=== PATIENT | female | born 1980 | race American Indian/Alaskan Native ===

== ENCOUNTER 2016-11-29 22:08 | Emergency (ER) | payer OTHER ==
[2016-11-29] MEDS ORDERED: TYLENOL PO ONE (22:29)
[2016-11-29 23:10] LABS: Basophils % (Auto) 0.3 % (0.0-1.8); Hematocrit 41.9 % (30.3-42.9); Hemoglobin 13.7 gm/dl (10.1-14.3); Mean Corpuscular HGB Conc 33 % (30-34); Mean Corpuscular Hemoglobin 26 pg (28-32); Mean Corpuscular Volume 81 fl (79-97); Platelet Count 200 K/mm3 (140-440); Red Cell Distribution Width 13.3 % (13.2-15.2)
[2016-11-29 23:21] LABS: Anion Gap 17 mmol/L; BUN/Creatinine Ratio 6.25; Blood Urea Nitrogen 5 mg/dL (7-17); Carbon Dioxide 27 mmol/L (22-30); Chloride 94.1 mmol/L (98-107); Glucose 103 mg/dL (65-100); Potassium 3.1 mmol/L (3.6-5.0); Sodium 135 mmol/L (137-145)
[2016-11-30 06:10] LABS: Bacteria,Urine 1+ /HPF (Negative); Bilirubin,Urine NEG (Negative); Blood,Urine MOD (Negative); Ketones,Urine NEG (Negative); Leukocyte Esterase,Urine MOD (Negative); Mucus,Urine 2+ /HPF; Nitrite,Urine NEG (Negative)
--- NOTE | 2016-11-30 07:41 | XRay Report ---
CHEST ONE VIEW INDICATION: Chest pain. COMPARISON: None similar. FINDINGS: Portable, single, frontal chest radiograph demonstrates normal cardiomediastinal silhouette. Clear lungs. Unremarkable bones. CONCLUSION: No acute disease in the chest. Thank you for the opportunity to participate in this patient's care.
[2016-11-30] MEDS ORDERED: BICILLIN L-A IM ONE (09:09)
[2016-11-30] MEDS ORDERED: TORADOL IM ONE (09:11)
[2016-11-30] MEDS ORDERED: LIDOCAINE VISCOUS 2% PO ONE (09:11)
[2016-11-30] MEDS ORDERED: MUCINEX ER PO ONE (09:12)
--- NOTE | 2016-11-30 09:17 | Emergency Department Report ---
HPI - General Chief Complaint: Fever Time Seen by Provider: 11/30/16 07:55 - HPI HPI: The patient is 36-year-old female who presents for evaluation of sore throat. The patient reports constant and severe sore throat since yesterday, exacerbated with swallowing liquids or food, and associated with generalized myalgias, bilateral chest wall achiness, moderate in severity, and waxing and waning fever. The patient denies dyspnea, cough, neck stiffness, dysphagia, stridor, drooling, difficulty tolerating secretions, dysphonia, hoarseness of voice, abdominal pain. ED Past Medical Hx - Past Medical History Previous Medical History?: Yes Hx Deep Vein Thrombosis: Yes (2001 DURING ) Hx Sickle Cell Disease: Yes (TRAIT) - Surgical History Past Surgical History?: Yes Additional Surgical History: c sect, ectopic preg. cyst removal, hernia - Social History Smoking Status: Current Every Day Smoker Substance Use Type: None - Medications Home Medications: Home Medications Medication Instructions Recorded Confirmed Last Taken Type HYDROcodone/APAP 7.5-325 [[place]] 15 ml PO Q4HR PRN #120 ml 11/30/16 Unknown Rx Ibuprofen [Motrin] 800 mg PO Q8HR PRN #14 tablet 11/30/16 Unknown Rx guaiFENesin [Mucinex] 600 mg PO Q6HR #20 tab.er.12h 11/30/16 Unknown Rx ED Review of Systems ROS: Stated complaint: FLU LIKE SYMPTOMS, BONE ACHE Other details as noted in HPI Constitutional: denies: fever ENT: reports sore throat Respiratory: reports cough, shortness of breath Cardiovascular: denies: chest pain Endocrine: denies unexplained weight loss or gain Gastrointestinal: denies: abdominal pain, nausea Genitourinary: denies: dysuria Musculoskeletal: denies: leg swelling Skin: denies: rash Neurological: denies: headache Hematological/Lymphatic: denies: easy bleeding or easy bruising Psych: denies sadness or hopelessness Physical Exam - Physical Exam Vital Signs: Vital Signs 11/29/16 11/29/16 11/30/16 22:25 22:34 03:33 Temperature 101.2 F H 99.5 F Pulse Rate 124 H 99 H Respiratory 18 18 20 Rate Blood Pressure 138/94 Blood Pressure [Left] Blood Pressure 138/93 [Right] O2 Sat by Pulse 100 99 Oximetry 11/30/16 11/30/16 06:59 07:15 Temperature 99.6 F Pulse Rate 92 H Respiratory 18 16 Rate Blood Pressure Blood Pressure 142/94 [Left] Blood Pressure [Right] O2 Sat by Pulse 100 Oximetry Physical Exam: General: well-nourished, well-developed, no acute distress Head: Normocephalic, atraumatic Eyes: normal sclera ENT: Mucous membranes are pink and moist, bilateral tonsillar erythema and swelling present, mild tonsillar exudate, no stridor, no pooling of secretions Neck: trachea midline, neck supple, No neck stiffness, no cervical adenopathy Respiratory: Breath sounds equal bilaterally, no wheezing, rales, or rhonchi Cardio: S1 and S2 present, no murmurs, rubs, gallops, capillary refill is brisk Abdomen: Normoactive bowel sounds, soft abdomen, no rigidity, no guarding or rebound tenderness Musc: No pitting edema Skin: No rash Neuro: no facial drooping, normal speech Psych: Normal affect ED Course Vital Signs 11/29/16 11/29/16 11/30/16 22:25 22:34 03:33 Temperature 101.2 F H 99.5 F Pulse Rate 124 H 99 H Respiratory 18 18 20 Rate Blood Pressure 138/94 Blood Pressure [Left] Blood Pressure 138/93 [Right] O2 Sat by Pulse 100 99 Oximetry 11/30/16 11/30/16 06:59 07:15 Temperature 99.6 F Pulse Rate 92 H Respiratory 18 16 Rate Blood Pressure Blood Pressure 142/94 [Left] Blood Pressure [Right] O2 Sat by Pulse 100 Oximetry ED Medical Decision Making - Lab Data Result diagrams: 11/29/16 22:40 11/29/16 22:40 - Medical Decision Making The patient was seen and examined by myself. The patient is placed on a monitor and storage bin tender and continuous pulse ox. On initial evaluation, the patient was found to be in no distress. Evaluation orders were placed. The patient was given a tablet of Tylenol for her elevated temperature. The patient was given viscous lidocaine and an IM dose of Toradol for her pain. The strep screen is positive for streptococcal pharyngitis. The patient is given IM penicillin G injection, for treatment of strep pharyngitis. The patient was reevaluated and reported that their symptoms were markedly improved. The patient is stable for discharge with outpatient follow-up. The patient is given follow-up and return instructions. The patient expressed understanding and agreed with the plan. The patient is discharged in stable condition. Critical care attestation.: If time is entered above; I have spent that time in minutes in the direct care of this critically ill patient, excluding procedure time. ED Disposition Clinical Impression: Acute streptococcal pharyngitis, Myalgia, Acute chest wall pain Disposition: DISCHARGED TO HOME OR SELFCARE Is pt being admited?: No Does the pt Need Aspirin: No Condition: Stable Instructions: Strep Throat (ED), Musculoskeletal Pain (ED), Chest Pain (ED) Referrals: PRIMARY CARE, [Primary Care Provider] - 3-5 Days Time of Disposition: 09:12
[2016-11-30 10:07] VITALS: BP 134/77
== END 2016-11-30 10:07 | disposition home or self-care (01) ==
LOC: ED 22:08
DX: J02.0 Streptococcal pharyngitis (principal); M79.1 Myalgia; R07.89 Other chest pain; F17.200 Nicotine dependence, unspecified, uncomplicated; Z86.2 Personal history of diseases of the blood and blood-forming organs and certain disorders involving the immune mechanism; Z86.718 Personal history of other venous thrombosis and embolism
CPT/HCPCS: 36415; 71010; 80048; 81001; 81025; 85025; 87400; 87430; 96372; 99284; J0561; J1885

== ENCOUNTER 2018-05-22 10:59 | Emergency (ER) | payer MEDICAID ==
[2018-05-22 11:40] VITALS: BP 112/70
[2018-05-22 12:31] LABS: Hematocrit 36.6 % (30.3-42.9); Hemoglobin 12.3 gm/dl (10.1-14.3); Mean Corpuscular HGB Conc 34 % (30-34); Mean Corpuscular Hemoglobin 28 pg (28-32); Mean Corpuscular Volume 84 fl (79-97); Platelet Count 264 K/mm3 (140-440); Red Blood Count 4.38 M/mm3 (3.65-5.03); Red Cell Distribution Width 13.4 % (13.2-15.2)
[2018-05-22 12:40] LABS: INR 0.96 (0.87-1.13); Partial Thromboplastin Time 25.2 Sec. (24.2-36.6)
[2018-05-22 12:54] LABS: BUN/Creatinine Ratio 18; Blood Urea Nitrogen 9 mg/dL (7-17); Calcium 9.2 mg/dL (8.4-10.2); Hemolysis Index 1
[2018-05-22 13:45] LABS: Bilirubin,Urine NEG (Negative); Blood,Urine NEG (Negative); Color,Urine Amber (Yellow); Mucus,Urine FEW /HPF; Protein,Urine <15 mg/dL mg/dL (Negative); WBC,Urine < 1.0 /HPF (0.0-6.0)
== END 2018-05-22 14:17 | disposition left against medical advice (07) ==
LOC: ED 10:59
DX: O20.9 Hemorrhage in early pregnancy, unspecified (principal); R10.2 Pelvic and perineal pain; Z3A.17 17 weeks gestation of pregnancy; Z53.21 Procedure and treatment not carried out due to patient leaving prior to being seen by health care provider
CPT/HCPCS: 36415; 80048; 81001; 84702; 85027; 85610; 85730; 86850; 86900; 86901

== ENCOUNTER 2018-10-21 14:05 | Inpatient (IN) | payer MEDICAID ==
[2018-10-21] MEDS ORDERED: PEPCID IV ONE (15:00)
[2018-10-21] MEDS ORDERED: ANCEF/STERILE WATER 2 GM/20 ML 2 GM/20 ML SYRINGE IV NR (15:00)
[2018-10-21] MEDS ORDERED: PITOCin/NS 20 UNIT/1000ML DRIP 20 UNITS/1,000 ML BAG IV SCH ×2 (15:00→19:00)
[2018-10-21] MEDS ORDERED: BICITRA PO ONE (15:00)
[2018-10-21] MEDS ORDERED: LACTATED RINGERS 1,000 ML IV SCH (15:00)
[2018-10-21] MEDS ORDERED: REGLAN IV ONE (15:00)
--- NOTE | 2018-10-21 15:05 | Anesthesia Day of Surgery ---
Anesthesia Day of Surgery - Day of Surgery Patient Examined: Yes Patient H&P Reviewed: Yes Patient is NPO: No (Pt had a full breakfast at 11 am ) Beta Blockers: No
--- NOTE | 2018-10-21 15:08 | Anesthesia Consultation ---
Anesthesia Consult and Med Hx Date of service: 10/21/18 - Airway Anesthetic Teeth Evaluation: Chipped (Right lower incisor) ROM Head & Neck: Adequate Mental/Hyoid Distance: Adequate Mallampati Class: Class III Intubation Access Assessment: Probably Good - Pulmonary Exam CTA: Yes - Cardiac Exam Cardiac Exam: No Murmur - Pre-Operative Health Status ASA Pre-Surgery Classification: ASA2, Emergency Proposed Anesthetic Plan: Spinal - Pulmonary Hx Asthma: No - Cardiovascular System Hx Hypertension: No - Central Nervous System Hx Seizures: No Hx Psychiatric Problems: No - Endocrine Hx Renal Disease: No Hx Hypothyroidism: No Hx Hyperthyroidism: No - Hematic Hx Anemia: No Hx Sickle Cell Disease: No (pt has trait) - Other Systems Hx Alcohol Use: No - Additional Comments Anesthesia Medical History Comments: Pt has a history of DVT and takes lovenox at home, last dose of aspirin and Lovenox was Monday10/19/18 at 0800 as per patient. Risks, benefits and plans discussed at length with patient for this procedure and all questions answered.
[2018-10-21 15:12] LABS: Basophils % (Auto) 0.5 % (0.0-1.8); Eosinophils # (Auto) 0.1 K/mm3 (0.0-0.4); Eosinophils % (Auto) 1.7 % (0.0-4.3); Hematocrit 34.4 % (30.3-42.9); Hemoglobin 12.1 gm/dl (10.1-14.3); Lymphocytes % (Auto) 23.5 % (13.4-35.0); Mean Corpuscular HGB Conc 35 % (30-34); Mean Corpuscular Volume 80 fl (79-97); Monocytes # (Auto) 0.7 K/mm3 (0.0-0.8); Monocytes % (Auto) 8.6 % (0.0-7.3); Platelet Count 233 K/mm3 (140-440); Red Blood Count 4.33 M/mm3 (3.65-5.03); Red Cell Distribution Width 14.7 % (13.2-15.2)
[2018-10-21] MEDS ORDERED: PHENERGAN PO PRN (15:13)
[2018-10-21] MEDS ORDERED: ZOFRAN IV PRN ×2 (15:13→18:41)
[2018-10-21] MEDS ORDERED: PHENERGAN PR PRN (15:13)
[2018-10-21] MEDS ORDERED: NARCAN 0.4 MG/1 ML IV PRN ×2 (15:13→18:41)
[2018-10-21 15:15] LABS: Partial Thromboplastin Time 25.4 Sec. (24.2-36.6)
--- NOTE | 2018-10-21 15:47 | History and Physical Report ---
History of Present Illness Date of examination: 10/21/18 Date of admission: 10/21/18 14:05 Chief complaint: rupture of membranes History of present illness: Pt is a 38 year old -[place]oven[place] female DENNISE 10/27/18 at 39w1d who presents with rupture of membranes at 1300 PM today. She reports irregular contractions but denies vaginal bleeding. She has had care at [facility] since 10 wks with comanagement with [facility] secondary to history of DVT on prophylactic Lovenox (last dose 10/19/18), advanced maternal age, previous , hyperthyroidism, genital herpes, undesired fertility. She is GBS negative. Past History Past Medical History: deep vein thrombosis (2001 during a ) Past Surgical History: QUILL FIXER/uterine surgery (ex lap), section, other (hernia repair ) QUILL FIXER History: herpes Family/Genetic History: none Social history: no significant social history - Obstetrical History Expected Date of Delivery: 10/27/18 Actual Gestation: 39 Week(s) 1 Day(s) : 8 Para: 2 Hx # Term Pregnancies: 2 Number of Pregnancies: 0 Spontaneous Abortions: 2 (1 SAB, 1 ectopic ) Induced : 3 Number of Living Children: 2 Medications and Allergies Allergies Allergy/AdvReac Type Severity Reaction Status Date / Time No Known Allergies Allergy Verified 10/21/18 14:24 Home Medications Medication Instructions Recorded Confirmed Last Taken Type HYDROcodone/APAP 7.5-325 [[place]] 15 ml PO Q4HR PRN #120 ml 11/30/16 Unknown Rx Ibuprofen [Motrin] 800 mg PO Q8HR PRN #14 tablet 11/30/16 Unknown Rx guaiFENesin [Mucinex] 600 mg PO Q6HR #20 tab.er.12h 11/30/16 Unknown Rx Active Meds: Active Medications Cefazolin Sodium (Ancef/Sterile Water 2 Gm/20 Ml) 2 gm in 20 mls @ 80 mls/hr IV PREOP NR; Protocol Stop: 10/22/18 14:59 Lactated Ringer's (Lactated Ringers) 1,000 mls @ 2,250 mls/hr IV PREOP LAYLA Stop: 10/22/18 15:27 Oxytocin/Sodium Chloride (Pitocin/Ns 20 Unit/1000ml Drip) 20 units in 1,000 mls @ 0 mls/hr IV TITR LAYLA Fentanyl/Bupivacaine/Sodium Chlor (Fentanyl-Bupiv 2 Mcg/Ml-0.125%) 200 mcg in 100 mls @ 8 mls/hr EPIDURAL TITRATE LAYLA; Protocol Naloxone HCl (Narcan 0.4 Mg/1 Ml) 0.2 mg IV Q2MIN PRN PRN Reason: Res Rate </= 8 or 02 SAT < 92% Ondansetron HCl (Zofran) 4 mg IV Q8H PRN PRN Reason: Nausea And Vomiting Promethazine HCl (Phenergan) 25 mg PO Q6H PRN PRN Reason: Nausea And Vomiting Promethazine HCl (Phenergan) 25 mg AL Q6H PRN PRN Reason: Nausea And Vomiting Sodium Chloride (Sodium Chloride Flush Syringe 10 Ml) 10 ml IV PRN NR Stop: 10/22/18 15:59 Review of Systems All systems: negative - Vital Signs Vital signs: Vital Signs Temp Resp BP 98.1 F 18 146/85 10/21/18 15:00 10/21/18 15:00 10/21/18 15:00 Temp Pulse Resp BP Pulse Ox 98.1 F 100 H 18 146/85 10/21/18 15:00 10/21/18 15:17 10/21/18 15:00 10/21/18 15:17 - Physical Exam Breasts: Positive: deferred Abdomen: Positive: soft (gravid ) Uterus: Positive: enlarged (gravid ) Extremities: Positive: normal - Obstetrical FHR: auscultation normal Uterine Contraction Monitor Mode: External Uterine Contraction Pattern: Irregular Uterine Tone Measurement Phase: Resting Uterine Contraction Intensity: Mild Results Result Diagrams: 10/21/18 14:40 Abnormal lab results 10/21/18 Range/Units 14:40 MCHC 35 H (30-34) % [place] % (Auto) 8.6 H (0.0-7.3) % All other labs normal. Assessment and Plan A: IUP at 39w2d SROM Previous x 1 Undesired Fertility H/o DVT on Lovenox (last dose Monday10/19/18) GBS negative AMA P: Proceed with repeat section with bilateral tubal ligation and other indicated procedures.
[2018-10-21] MEDS ORDERED: SODIUM CHLORIDE FLUSH SYRINGE 10 ML IV NR ×2 (16:00→19:00)
[2018-10-21] MEDS ORDERED: fentaNYL-BUPIV 2 MCG/ML-0.125% 200 MCG/100 ML BAG EPIDURAL SCH (16:00)
[2018-10-21] MEDS ORDERED: ZOFRAN ONE (16:53)
[2018-10-21] MEDS ORDERED: SUBLIMAZE ONE (16:57)
[2018-10-21] MEDS ORDERED: XYLOCAINE MPF 2% ONE (17:02)
[2018-10-21] MEDS ORDERED: NEO SYNEPHRINE/NS Syringe(OR USE) IV ONE (17:03)
[2018-10-21] MEDS ORDERED: DILAUDID ONE (17:49)
--- NOTE | 2018-10-21 18:08 | Procedure Note ---
OB Delivery Note - Delivery Date of Delivery: 10/21/18 Surgeon: SHARYN BUCHANAN Estimated blood loss: other (700 mL) - Section Preop diagnosis: repeat , other (rupture of membranes ) Postop diagnosis: same section procedure: section, repeat low transverse, bilateral tubal ligation Disposition: PACU Complications: none Narrative: Please see operative report. - A at 1 minute: 8 at 5 minutes: 9 Infant Gender: Male (3370g (7lb 7oz) @ 1655 pm)
--- NOTE | 2018-10-21 18:08 | Operative Report ---
Operative Report Operative Report: Date of procedure: October 21, 2018 Preoperative diagnosis: 1) IUP at 39w1d 2) Spontaneous Rupture of Membranes 3) Previous x 1 4) H/o DVT in prior 5) Undesired Fertility Postoperative diagnosis: Same Procedure: 1) Repeat low transverse section 2) Bilateral tubal ligation via [place] Method Surgeon: Zayra Healy M.D. Anesthesia: Regional Findings: 1) Viable male , Apgars 8 and 9, weight 3370 g, (7 lb 7 oz) in cephalic presentation, meconium stained fluid 2) Normal-appearing uterus ovaries and tubes Estimated blood loss: 700 mL IV fluids: 3000 mL Urine output: 200mL, clear at the end of the procedure Drains: [place] to gravity Specimens: None Complications: None. Counts correct x 3 Disposition: Stable to PACU Indication for procedure: Pt is a 38 year old -[place] female at 39w1d with h/o one previous and DVT in prior who presents with rupture of membranes. The decision was made to proceed with repeat section. Operation in detail: After the risks, benefits, alternatives and complications were explained to the patient she gave informed consent for the procedure. She was subsequently taken to the operating room where regional anesthesia was noted to be adequate. She was subsequently placed in the dorsal supine position with leftward tilt and prepped and draped in a normal sterile fashion. heart tones were noted to be in the 140s prior to incision. A timeout was performed. A Pfannenstiel skin incision was made with the knife and carried down to the layer of the fascia with the Bovie. The fascia was incised in the midline and the fascial incision was extended bilaterally with the Bovie. Attention was then turned to the superior aspect of the incision which was grasped with two Kochers, tented up, and dissected off the rectus muscles. Attention was then turned to the inferior aspect of the incision which was grasped with two Kochers, tented up and dissected off the rectus muscles. The rectus muscles were then in the midline and partially transected for adequate visualization. The peritoneum was then entered bluntly. The peritoneal incision was extended with good visualization of the bladder. The peritoneal incision was then stretched. An Jitendra self-retaining retractor was placed for visualization. The bladder blade was placed. The vesicouterine peritoneum was grasped with smooth pickups and incised with Metzenbaum scissors. Metzenbaum scissors were used to extend the incision bilaterally. The bladder flap was then created digitally and the bladder blade was replaced. A transverse incision was made in the lower uterine segment with a knife and extended bilaterally with the bandage scissors. The head was delivered without difficulty followed by shoulders and body. was bulb suctioned at delivery. The cord was clamped and cut and the was handed to NICU staff in attendance. Cord blood was collected. The placenta was then delivered manually. The uterus was then exteriorized and cleared of all clots and debris. The hyst erotomy was then reapproximated with 0 Vicryl in a running locked fashion. A second layer of the same suture was used in imbricating fashion. Attention was then turned to the tubal ligation. The right tube was identified and followed to to the fimbriae. The tube was then grasped with a Jonathan, doubly tied and ligated via the [place] method using 0 Chromic. Attention was then turned to the left tube which in a similar fashion was followed down to the fimbriae, grasped with a Jonathan, doubly tied and ligated via the [place] method using 0 Chromic. Hemostasis was noted. Surgicel was placed over the cut edges of the tubes bilaterally. The hysterotomy was inspected and hemostasis was noted. The uterus was then returned to the peritoneal cavity. All instruments were removed from the a bdominal cavity. The gutters were irrigated and cleared of all clots and debris. The hysterotomy was again inspected and noted to be hemostatic. Surgicel was then placed over the hysterotomy. The peritoneum was reapproximated with 2-0 Vicryl in a running fashion incorporating the rectus muscles. The fascia was reapproximated with 0 Vicryl in a running fashion. The skin was reapproximated with 4-0 Vicryl in a subcuticular fashion. The incision was then covered with steri strips and a pressure dressing. The procedure was then ended. The patient tolerated the procedure well and was taken to the PACU in stable condition. All instrument, lap, and needle counts were correct 3.
[2018-10-21] MEDS ORDERED: DILAUDID IV ONE (18:32)
[2018-10-21] MEDS ORDERED: TUCKS PAD TP PRN (18:41)
[2018-10-21] MEDS ORDERED: LANSINOH TP PRN (18:41)
[2018-10-21] MEDS ORDERED: MYLICON PO PRN (18:41)
[2018-10-21] MEDS ORDERED: D5LR 1,000 ML IV SCH (19:00)
[2018-10-21] MEDS ORDERED: SUBLIMAZE IV ONE (19:13)
[2018-10-21] MEDS: IBUPROFEN PO PRN (19:28)
[2018-10-21] MEDS: PERCOCET 5/325 PO PRN (21:55)
[2018-10-21] MEDS: LOVENOX SUB-Q SCH (23:07)
[2018-10-21] MEDS: ANCEF/NS 1 GM/50 ML 1 GM/50 ML BAG IV SCH (23:07)
[2018-10-22] MEDS: PERCOCET 5/325 PO PRN ×4 (05:49→22:08)
[2018-10-22] MEDS ORDERED: M-M-R II VACCINE SUB-Q ONE (06:00)
[2018-10-22] MEDS ORDERED: BOOSTRIX IM ONE (06:00)
[2018-10-22 06:18] LABS: Hematocrit 29.7 % (30.3-42.9); Hemoglobin 10.1 gm/dl (10.1-14.3)
[2018-10-22 06:45] LABS: Hepatitis B Surface Antigen Non-Reactive (Negative); Hepatitis C Virus Antibody Non-Reactive (NonReactive)
[2018-10-22] MEDS: IBUPROFEN PO PRN ×3 (07:17→22:10)
[2018-10-22] MEDS: ANCEF/NS 1 GM/50 ML 1 GM/50 ML BAG IV SCH (08:19)
--- NOTE | 2018-10-22 08:54 | Progress Note ---
Assessment and Plan A/P POD 1 s/p csec doing well vss continue post op care Subjective - Subjective Date of service: 10/22/18 Principal diagnosis: s/p csec Patient reports: appetite normal, voiding normally, pain well controlled, flatus, ambulating normally [place]: doing well Objective - Vital Signs Latest vital signs: Vital Signs Temp Pulse Resp BP BP Pulse Ox 10/22/18 08:36 98.7 F 83 18 122/80 97 10/22/18 07:17 20 10/22/18 05:49 24 10/22/18 04:30 98.6 F 77 16 118/79 10/22/18 00:00 98.6 F 74 18 118/73 10/21/18 21:55 22 10/21/18 19:50 98.7 F 82 18 132/83 10/21/18 19:30 98.3 F 98 H 20 123/70 10/21/18 19:15 89 22 130/71 10/21/18 19:00 87 22 130/71 10/21/18 18:30 93 H 19 128/85 98 10/21/18 18:15 14 135/86 10/21/18 18:10 79 15 132/81 100 10/21/18 18:05 86 19 116/82 99 10/21/18 18:00 91 H 16 134/85 10/21/18 17:55 98.3 F 98 H 16 122/81 10/21/18 15:17 100 H 146/85 10/21/18 15:00 98.1 F 18 146/85 Intake and Output 10/21/18 10/22/18 10/22/18 23:59 07:59 15:59 Intake Total 1500 500 240 Output Total 200 600 Balance 1300 -100 240 Intake: IV 1500 ANCEF/NS 1 GM/50 ML 1 gm 50 In 50 ml @ 100 mls/hr IV Q8H [facility] Rx#:[id number] Oral 200 Intake, Free Water 300 240 Output: Urine 200 600 Void 600 Other: Total, Intake Amount 200 Total, Output Amount 600 - Exam Breasts: Present: normal Cardiovascular: Present: Regular rate, Normal S1 Lungs: Present: Clear to auscultation, Normal air movement Abdomen: Present: normal appearance, soft, normal bowel sounds. Absent: distention, tenderness, guarding Vulva: both: normal Uterus: Present: normal, firm, fundal height below umbilicus. Absent: bogginess, tenderness Extremities: Present: normal Incision: Present: normal, dry, dressed - Labs Labs: Abnormal lab results 10/21/18 10/22/18 Range/Units 14:40 05:27 Hct 29.7 L (30.3-42.9) % MCHC 35 H (30-34) % [place] % (Auto) 8.6 H (0.0-7.3) %
[2018-10-22] MEDS: FEOSOL PO SCH (10:12)
[2018-10-22] MEDS: MILK OF MAGNESIA PO PRN (22:08)
[2018-10-22] MEDS: LOVENOX SUB-Q SCH (22:10)
[2018-10-23] MEDS: PERCOCET 5/325 PO PRN ×4 (05:57→21:47)
[2018-10-23] MEDS: IBUPROFEN PO PRN ×3 (05:57→21:46)
[2018-10-23] MEDS ORDERED: BOOSTRIX IM ONE (06:00)
--- NOTE | 2018-10-23 08:34 | Progress Note ---
Assessment and Plan - Patient Problems (1) Previous section Current Visit: Yes Status: Acute Plan to address problem: discharge home tomorrow clinically stable Subjective - Subjective Date of service: 10/23/18 Principal diagnosis: s/p csec Interval history: Patient states pain is improving. Tolerating diet. Desires discharge home tomorrow Patient reports: appetite normal, voiding normally, pain well controlled [place]: doing well Objective - Vital Signs Latest vital signs: Vital Signs Temp Pulse Resp BP BP Pulse Ox 10/23/18 07:20 98.3 F 93 H 20 115/79 95 10/22/18 23:29 98.4 F 94 H 20 125/78 97 10/22/18 15:54 98.5 F 99 H 18 126/88 98 10/22/18 12:51 98.6 F 90 18 117/78 98 10/22/18 12:50 98.6 F 90 16 117/78 97 10/22/18 08:36 98.7 F 83 18 122/80 97 Intake and Output 10/22/18 10/23/18 10/23/18 22:59 06:59 14:59 Intake Total 240 480 Output Total 750 Balance -510 480 Intake: Oral 480 Intake, Free Water 240 Output: Urine 750 Void 750 Other: Total, Intake Amount 240 Total, Output Amount 750 # Voids Void 1 - Exam Abdomen: Present: normal appearance, soft Incision: Present: normal
--- NOTE | 2018-10-23 08:36 | Discharge Summary ---
Providers - Providers Date of Admission: 10/21/18 14:05 Date of discharge: 10/24/18 Attending physician: SHARYN BUCHANAN Primary care physician: [facility] Hospital[facility] Reason for admission: active labor, section Delivery: Procedure: section, bilateral tubal ligation, repeat low transverse Incision: normal Discharge diagnosis: IUP at term delivered baby: male Hospital course: Patient admitted in labor with a prior . Patient underwent rltcs and btl. see op note. postop uncomplicated Condition at discharge: Good Disposition: DC-01 TO HOME OR SELFCARE - Discharge Diagnoses (1) Previous section Status: Acute Plan - Discharge Medications Prescriptions: Ferrous Sulfate 325 mg PO BID #60 tablet. Ibuprofen [Motrin] 600 mg PO Q8H PRN #30 tablet PRN Reason: Pain oxyCODONE /ACETAMINOPHEN [Percocet 5/325] 1 tab PO Q6HR PRN #30 tablet PRN Reason: Pain - Provider Discharge Summary Activity: no sex for 6 weeks, no heavy lifting 4 weeks, no strenuous exercise Diet: routine Instructions: routine Additional instructions: [] Smoking cessation referral if applicable(refer to patient education folder for contact #) [] Refer to [facility] Booklet Call your doctor immediately for: * Fever > 100.5 * Heavy vaginal bleeding ( >1 pad per hour) * Severe persistent headache * Shortness of breath * Reddened, hot, painful area to leg or breast * schedule followup in 2 weeks - Follow up plan
[2018-10-23] MEDS: FEOSOL PO SCH (10:48)
[2018-10-23] MEDS: LOVENOX SUB-Q SCH (21:49)
[2018-10-23] MEDS: MILK OF MAGNESIA PO PRN (22:14)
[2018-10-24] MEDS: PERCOCET 5/325 PO PRN ×3 (02:13→10:34)
[2018-10-24] MEDS: IBUPROFEN PO PRN (05:39)
[2018-10-24 09:01] VITALS: BP 107/74
[2018-10-24] MEDS: FEOSOL PO SCH (10:35)
== END 2018-10-24 11:20 | disposition home or self-care (01) | DRG 766 ==
LOC: APU 14:05 → OB 19:56
PROVIDERS: ADMIT Obstetrics & Gynecology; ATTEND Obstetrics & Gynecology
PROC: 10D00Z1 Extraction of Products of Conception, Low, Open Approach (ICD-10-PCS; principal; 2018-10-21)
PROC: 0UB70ZZ Excision of Bilateral Fallopian Tubes, Open Approach (ICD-10-PCS; 2018-10-21)
PROC: 3E0234Z Introduction of Serum, Toxoid and Vaccine into Muscle, Percutaneous Approach (ICD-10-PCS; 2018-10-22)
DX: O34.211 Maternal care for low transverse scar from previous cesarean delivery (principal); O99.284 Endocrine, nutritional and metabolic diseases complicating childbirth; E05.90 Thyrotoxicosis, unspecified without thyrotoxic crisis or storm; Z3A.39 39 weeks gestation of pregnancy; Z37.0 Single live birth; Z86.718 Personal history of other venous thrombosis and embolism; Z79.899 Other long term (current) drug therapy; Z23 Encounter for immunization
CPT/HCPCS: 36415; 80074; 84443; 85014; 85018; 85025; 85610; 85730; 86762; 86850; 86900; 86901; 88302; 90471; 90715; G0378; J0690; J1170; J1650; J2370; J2405; J2590; J2765; J3010; J7121

== ENCOUNTER 2019-12-18 16:29 | Emergency (ER) | payer OTHER ==
[2019-12-18 19:15] VITALS: BP 173/110
[2019-12-18] MEDS ORDERED: ACETAMINOPHEN 500 MG TAB PO ONE (20:04)
[2019-12-18] MEDS ORDERED: IBUPROFEN 600 MG TAB PO ONE (20:04)
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
[2019-12-18 22:43] LABS: HCG Qualitative,Urine Negative (Negative)
[2019-12-18 22:44] LABS: Bilirubin,Urine NEG (Negative); Blood,Urine NEG (Negative); Color,Urine Yellow (Yellow); Mucus,Urine FEW /HPF; Protein,Urine <15 mg/dL mg/dL (Negative)
== END 2019-12-18 22:17 | disposition home or self-care (01) ==
LOC: ED 16:29
DX: S39.012A Strain of muscle, fascia and tendon of lower back, initial encounter (principal); M62.830 Muscle spasm of back; Z79.1 Long term (current) use of non-steroidal anti-inflammatories (NSAID); Z79.899 Other long term (current) drug therapy; Z98.890 Other specified postprocedural states; V49.49XA Driver injured in collision with other motor vehicles in traffic accident, initial encounter; Y93.89 Activity, other specified; Y92.410 Unspecified street and highway as the place of occurrence of the external cause; Y99.8 Other external cause status
CPT/HCPCS: 72072; 72100; 81001; 81025

== ENCOUNTER 2020-03-12 20:06 | Emergency (ER) | payer OTHER ==
[2020-03-12 21:00] VITALS: BP 165/109
[2020-03-12] MEDS ORDERED: ACETAMINOPHEN 500 MG TAB PO ONE (22:35)
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
== END 2020-03-12 22:58 | disposition home or self-care (01) ==
LOC: ED 20:06
DX: R10.9 Unspecified abdominal pain (principal); Z86.718 Personal history of other venous thrombosis and embolism; Z98.890 Other specified postprocedural states; Z79.1 Long term (current) use of non-steroidal anti-inflammatories (NSAID); Z79.899 Other long term (current) drug therapy; V49.49XA Driver injured in collision with other motor vehicles in traffic accident, initial encounter; Y93.89 Activity, other specified; Y92.481 Parking lot as the place of occurrence of the external cause; Y99.8 Other external cause status
CPT/HCPCS: 99282

== ENCOUNTER 2020-09-10 10:55 | Emergency (ER) | payer SELFPAY ==
--- NOTE | 2020-09-10 12:32 | Event Note ---
ED Screening Note ED Screening Note: BLE pain that began two days ago went to [place] last week, 7 hours in the car no leg swelling has been taking muscle relaxers, ibuprofen no fever no n/v/d no SOB PMHx DVT 2001, in the left leg This initial assessment/diagnostic orders/clinical plan/treatment(s) is/are subject to change based on patients health status, clinical progression and re- assessment by fellow clinical providers in the ED. Further treatment and workup at subsequent clinical providers discretion. Patient/guardian urged not to elope from the ED as their condition may be serious if not clinically assessed and managed. Initial orders include: labs, US
[2020-09-10 13:13] LABS: Basophils # (Auto) 0.1 K/mm3 (0.0-0.1); Hematocrit 42.1 % (30.3-42.9); Hemoglobin 14.2 gm/dl (10.1-14.3); Lymphocytes # (Auto) 1.1 K/mm3 (1.2-5.4); Lymphocytes % (Auto) 16.4 % (13.4-35.0); Mean Corpuscular HGB Conc 34 % (30-34); Mean Corpuscular Volume 81 fl (79-97); Monocytes # (Auto) 0.8 K/mm3 (0.0-0.8); Monocytes % (Auto) 10.8 % (0.0-7.3); Platelet Count 217 K/mm3 (140-440); Red Blood Count 5.22 M/mm3 (3.65-5.03); Red Cell Distribution Width 13.6 % (13.2-15.2)
[2020-09-10 13:23] LABS: INR 1.15 (0.87-1.13); Partial Thromboplastin Time 28.9 Sec. (24.2-36.6)
[2020-09-10 13:37] LABS: Alanine Aminotransferase 16 units/L (7-56); Albumin 4.3 g/dL (3.9-5); Blood Urea Nitrogen 8 mg/dL (7-17); Calcium 9.1 mg/dL (8.4-10.2); Hemolysis Index 1
[2020-09-10] MEDS ORDERED: POTASSIUM CHLORIDE ER 20 MEQ TAB PO ONE (13:39)
[2020-09-10] MEDS ORDERED: HYDROcodone/ACETAMINOPHEN 5-325 MG TAB PO ONE (13:39)
[2020-09-10 14:03] LABS: BUN/Creatinine Ratio 11
[2020-09-10 15:02] VITALS: BP 126/84
--- NOTE | 2020-09-10 15:07 | Emergency Department Report ---
ED Extremity Problem HPI - General Chief complaint: Extremity Injury, Lower Stated complaint: DVT/AMADO LEG PAIN/FEVER Time Seen by Provider: 09/10/20 12:29 Source: patient Mode of arrival: Ambulatory Limitations: No Limitations - History of Present Illness Initial comments: Patient is a 39-year-old female presents emergency room with some bilateral lower extremity pain that began 2 days ago. She states that she went to [place] last week and just recently got back and it was a 7-hour car ride. She states that she has been taking some muscle relaxers and ibuprofen that she had leftover but she states that she does not have anymore. She states that she has cramping mostly in the bilateral thighs that radiates down the legs. She denies any fall or injury. She denies any leg swelling, fever, nausea, vomiting, diarrhea, shortness of breath. She has a past medical history of DVT in 2001 in her left leg while she was at the time. She is not currently on blood thinners. Severity scale (0 -10): 2 - Related Data Previous Rx's Medication Instructions Recorded Last Taken Type Naproxen [EC-Naprosyn] 500 mg PO BID PRN #14 tablet. 09/10/20 Unknown Rx methOCARBAMOL [Robaxin TAB] 500 mg PO BID PRN #14 tab 09/10/20 Unknown Rx Allergies Allergy/AdvReac Type Severity Reaction Status Date / Time No Known Allergies Allergy Verified 05/19/20 12:45 ED Review of Systems ROS: Stated complaint: DVT/AMADO LEG PAIN/FEVER Other details as noted in HPI Comment: All other systems reviewed and negative ED Past Medical Hx - Past Medical History Hx Hypertension: No Hx Congestive Heart Failure: No Hx Diabetes: No Hx Deep Vein Thrombosis: Yes (With ) Hx Renal Disease: No Hx Sickle Cell Disease: Yes (Trait only) Hx Seizures: No Hx Asthma: No - Surgical History Past Surgical History?: Yes Additional Surgical History: c sect, ectopic preg. cyst removal, hernia - Social History Smoking Status: Never Smoker Substance Use Type: None - Medications Home Medications: Home Medications Medication Instructions Recorded Confirmed Last Taken Type Naproxen [EC-Naprosyn] 500 mg PO BID PRN #14 tablet. 09/10/20 Unknown Rx methOCARBAMOL [Robaxin TAB] 500 mg PO BID PRN #14 tab 09/10/20 Unknown Rx ED Physical Exam - General Limitations: No Limitations General appearance: alert, in no apparent distress - Head Head exam: Present: atraumatic, normocephalic - Eye Eye exam: Present: normal appearance - ENT ENT exam: Present: mucous membranes moist - Respiratory Respiratory exam: Present: normal lung sounds bilaterally. Absent: respiratory distress, wheezes, rales, rhonchi, stridor, chest wall tenderness, accessory muscle use, decreased breath sounds, prolonged expiratory - Cardiovascular Cardiovascular Exam: Present: regular rate, normal rhythm, normal heart sounds. Absent: systolic murmur, diastolic murmur, rubs, gallop - Extremities Exam Extremities exam: Present: normal inspection, full ROM, normal capillary refill, other (no skin changes, no rashes, no erythema, no edema). Absent: tenderness, pedal edema, joint swelling, calf tenderness - Neurological Exam Neurological exam: Present: alert, oriented X3 - Psychiatric Psychiatric exam: Present: normal affect, normal mood - Skin Skin exam: Present: warm, dry, intact ED Course Vital Signs 09/10/20 09/10/20 09/10/20 11:03 14:48 15:01 Temperature 97.9 F 98.2 F 98.2 F Pulse Rate 115 H 99 H 91 H Respiratory 20 14 14 Rate Blood Pressure 155/116 126/84 Blood Pressure 126/84 [Left] O2 Sat by Pulse 97 98 98 Oximetry ED Medical Decision Making - Lab Data Result diagrams: 09/10/20 12:40 09/10/20 12:40 Lab Results 09/10/20 09/10/20 09/10/20 Range/Units 12:40 12:40 12:40 WBC 7.0 (4.5-11.0) K/mm3 RBC 5.22 H (3.65-5.03) M/mm3 Hgb 14.2 (10.1-14.3) gm/dl Hct 42.1 (30.3-42.9) % MCV 81 (79-97) fl MCH 27 L (28-32) pg MCHC 34 (30-34) % RDW 13.6 (13.2-15.2) % Plt Count 217 (140-440) K/mm3 Lymph % (Auto) 16.4 (13.4-35.0) % Tyrrell % (Auto) 10.8 H (0.0-7.3) % Eos % (Auto) 0.0 (0.0-4.3) % Baso % (Auto) 1.0 (0.0-1.8) % Lymph # (Auto) 1.1 L (1.2-5.4) K/mm3 Tyrrell # (Auto) 0.8 (0.0-0.8) K/mm3 Eos # (Auto) 0.0 (0.0-0.4) K/mm3 Baso # (Auto) 0.1 (0.0-0.1) K/mm3 Seg Neutrophils % 71.8 H (40.0-70.0) % Seg Neutrophils # 5.0 (1.8-7.7) K/mm3 PT 14.5 (12.2-14.9) Sec. INR 1.15 H (0.87-1.13) APTT 28.9 (24.2-36.6) Sec. D-Dimer 158.20 (0-234) ng/mlDDU Sodium 138 (137-145) mmol/L Potassium 3.4 L (3.6-5.0) mmol/L Chloride 102.7 (98-107) mmol/L Carbon Dioxide 24 (22-30) mmol/L Anion Gap 15 mmol/L BUN 8 (7-17) mg/dL Creatinine 0.7 (0.6-1.2) mg/dL Estimated GFR > 60 ml/min BUN/Creatinine Ratio 11 % Glucose 87 (65-100) mg/dL Calcium 9.1 (8.4-10.2) mg/dL Magnesium 2.00 (1.7-2.3) mg/dL Total Bilirubin 0.50 (0.1-1.2) mg/dL AST 20 (5-40) units/L ALT 16 (7-56) units/L Alkaline Phosphatase 74 (35-129) units/L Total Creatine Kinase 156 H (30-135) units/L Total Protein 8.0 (6.3-8.2) g/dL Albumin 4.3 (3.9-5) g/dL Albumin/Globulin Ratio 1.2 % HCG, Qual (Negative) 09/10/20 Range/Units 12:40 WBC (4.5-11.0) K/mm3 RBC (3.65-5.03) M/mm3 Hgb (10.1-14.3) gm/dl Hct (30.3-42.9) % MCV (79-97) fl MCH (28-32) pg MCHC (30-34) % RDW (13.2-15.2) % Plt Count (140-440) K/mm3 Lymph % (Auto) (13.4-35.0) % Tyrrell % (Auto) (0.0-7.3) % Eos % (Auto) (0.0-4.3) % Baso % (Auto) (0.0-1.8) % Lymph # (Auto) (1.2-5.4) K/mm3 Tyrrell # (Auto) (0.0-0.8) K/mm3 Eos # (Auto) (0.0-0.4) K/mm3 Baso # (Auto) (0.0-0.1) K/mm3 Seg Neutrophils % (40.0-70.0) % Seg Neutrophils # (1.8-7.7) K/mm3 PT (12.2-14.9) Sec. INR (0.87-1.13) APTT (24.2-36.6) Sec. D-Dimer (0-234) ng/mlDDU Sodium (137-145) mmol/L Potassium (3.6-5.0) mmol/L Chloride (98-107) mmol/L Carbon Dioxide (22-30) mmol/L Anion Gap mmol/L BUN (7-17) mg/dL Creatinine (0.6-1.2) mg/dL Estimated GFR ml/min BUN/Creatinine Ratio % Glucose (65-100) mg/dL Calcium (8.4-10.2) mg/dL Magnesium (1.7-2.3) mg/dL Total Bilirubin (0.1-1.2) mg/dL AST (5-40) units/L ALT (7-56) units/L Alkaline Phosphatase (35-129) units/L Total Creatine Kinase (30-135) units/L Total Protein (6.3-8.2) g/dL Albumin (3.9-5) g/dL Albumin/Globulin Ratio % HCG, Qual Negative (Negative) Vital Signs 09/10/20 09/10/20 09/10/20 11:03 14:48 15:01 Temperature 97.9 F 98.2 F 98.2 F Pulse Rate 115 H 99 H 91 H Respiratory 20 14 14 Rate Blood Pressure 155/116 126/84 Blood Pressure 126/84 [Left] O2 Sat by Pulse 97 98 98 Oximetry - Radiology Data Radiology results: report reviewed Ordering Physician: HERNANDEZ ARNOLD Date of Service: 09/10/20 Procedure(s): VL venous duplex LE BILAT Accession Number(s): [id number] cc: HERNANDEZ ARNOLD DUPLEX DOPPLER LOWER EXTREMITY VEINS, BILATERAL INDICATION / CLINICAL INFORMATION: BLE pain. TECHNIQUE: Duplex doppler imaging was performed through the veins of both lower extremities using venous compression and other maneuvers. COMPARISON: None available. FINDINGS: RIGHT COMMON FEMORAL VEIN: Negative. RIGHT FEMORAL VEIN: Negative. RIGHT POPLITEAL VEIN: Negative. RIGHT CALF VEINS: Negative. LEFT COMMON FEMORAL VEIN: Negative. LEFT FEMORAL VEIN: Negative. LEFT POPLITEAL VEIN: Negative. LEFT CALF VEINS: Negative. ADDITIONAL FINDINGS: None. IMPRESSION: 1. No sonographic evidence for DVT in either lower extremity. Signer Name: Margaux Marshall MD Signed: 09/10/2020 3:09 PM Workstation Name: [id number] Transcribed By: JS Dictated By: MARGAUX BAUTISTA MD Electronically Authenticated By: MARGAUX BAUTISTA MD Signed Date/Time: 09/10/201508 DD/ 07 TD/TT: - Medical Decision Making Patient is a 39-year-old female presents emergency room with some bilateral lower extremity pain that began 2 days ago. She states that she went to [place] last week and just recently got back and it was a 7-hour car ride. She states that she has been taking some muscle relaxers and ibuprofen that she had leftover but she states that she does not have anymore. She states that she has cramping mostly in the bilateral thighs that radiates down the legs. She denies any fall or injury. She denies any leg swelling, fever, nausea, vomiting, diarrhea, shortness of breath, CP. She has a past medical history of DVT in 2001 in her left leg while she was at the time. She is not currently on blood thinners. Initial vitals with elevated heart rate and blood pressure which improved upon repeat to normal. labs with hypokalemia at 3.4, otherwise normal. d-dimer is negative. hcg is negative. No bony tenderness to palpation on exam, full range of motion, no edema, skin changes, neurovascularly intact. doppler US: 1. No sonographic evidence for DVT in either lower extremity. Patient given [place] and [place] while in the emergency department and symptoms improved and she is feeling much better and ready to go home. Patient did not drive to the emergency department. Patient given prescription for naproxen and Robaxin. Discussed all findings with patient and answered questions. I have advised patient Please take medication as prescribed as needed. Do not drive or operate machinery while taking muscle relaxer Robaxin. Increase your potassium intake. May use ice pack, heating pad, rest, and epsom salt bath. Follow-up with primary care doctor for reexamination. Return to emergency room for any new or worsening symptoms. - Differential Diagnosis DVT, electrolyte disturbance, PVD, muscle strain, muscle cramps Critical care attestation.: If time is entered above; I have spent that time in minutes in the direct care of this critically ill patient, excluding procedure time. ED Disposition Clinical Impression: Bilateral leg pain, Bilateral leg cramps, Hypokalemia Disposition: DC-01 TO HOME OR SELFCARE Is pt being admited?: No Does the pt Need Aspirin: No Condition: Stable Instructions: Hypokalemia, Leg Cramps Additional Instructions: Please take medication as prescribed as needed. Do not drive or operate machinery while taking muscle relaxer Robaxin. Increase your potassium intake. May use ice pack, heating pad, rest, and epsom salt bath. Follow-up with primary care doctor for reexamination. Return to emergency room for any new or worsening symptoms. Prescriptions: Naproxen [EC-Naprosyn] 500 mg PO BID PRN #14 tablet. PRN Reason: pain methOCARBAMOL [Robaxin TAB] 500 mg PO BID PRN #14 tab PRN Reason: pain Referrals: LUCIO HURD MD [Staff Physician] - 2-3 Days [facility] [Provider Group] - 2-3 Days Time of Disposition: 15:14 Print Language: TUVALUAN
--- NOTE | 2020-09-10 15:14 | Vascular Lab Report ---
DUPLEX DOPPLER LOWER EXTREMITY VEINS, BILATERAL INDICATION / CLINICAL INFORMATION: BLE pain. TECHNIQUE: Duplex doppler imaging was performed through the veins of both lower extremities using venous apryl moe and other maneuvers. COMPARISON: None available. FINDINGS: RIGHT COMMON FEMORAL VEIN: Negative. RIGHT FEMORAL VEIN: Negative. RIGHT POPLITEAL VEIN: Negative. RIGHT CALF VEINS: Negative. LEFT COMMON FEMORAL VEIN: Negative. LEFT FEMORAL VEIN: Negative. LEFT POPLITEAL VEIN: Negative. LEFT CALF VEINS: Negative. ADDITIONAL FINDINGS: None. IMPRESSION: 1. No sonographic evidence for DVT in either lower extremity. Signer Name: Davi Marshall MD Signed: 09/10/2020 3:09 PM Workstation Name: [id number]
== END 2020-09-10 15:50 | disposition home or self-care (01) ==
LOC: ED 10:55
DX: M79.604 Pain in right leg (principal); M79.605 Pain in left leg; E87.6 Hypokalemia; Z79.899 Other long term (current) drug therapy
CPT/HCPCS: 36415; 80053; 82550; 83735; 84703; 85025; 85379; 85610; 85730; 93970

== ENCOUNTER 2021-06-13 10:42 | Emergency (ER) | payer OTHER ==
[2021-06-13 11:51] VITALS: BP 173/105
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
== END 2021-06-13 12:50 | disposition home or self-care (01) ==
LOC: ED 10:42
DX: S01.81XA Laceration without foreign body of other part of head, initial encounter (principal); H72.91 Unspecified perforation of tympanic membrane, right ear; Z98.890 Other specified postprocedural states; Z79.899 Other long term (current) drug therapy; X58.XXXA Exposure to other specified factors, initial encounter; Y93.89 Activity, other specified; Y92.89 Other specified places as the place of occurrence of the external cause; Y99.8 Other external cause status

== ENCOUNTER 2021-06-25 11:09 | Emergency (ER) | payer SELFPAY ==
--- NOTE | 2021-06-25 12:27 | Emergency Department Report ---
Suture/Staple Removal - [facility] Chief Complaint: Laceration/Recheck/Suture Stated Complaint: suture removal Time Seen by Provider: 06/25/21 12:23 When Sutures or Ninfa Placed: 06/13/21 Wound Location: left forehead ED Review of Systems ROS: Stated complaint: suture removal Other details as noted in HPI Comment: All other systems reviewed and negative ED Past Medical Hx - Past Medical History Hx Hypertension: No Hx Congestive Heart Failure: No Hx Diabetes: No Hx Deep Vein Thrombosis: Yes (With ) Hx Renal Disease: No Hx Sickle Cell Disease: Yes (Trait only) Hx Seizures: No Hx Asthma: No - Surgical History Additional Surgical History: c sect, ectopic preg. cyst removal, hernia - Social History Smoking Status: Never Smoker Substance Use Type: None - Medications Home Medications: Home Medications Medication Instructions Recorded Confirmed Last Taken Type Naproxen [EC-Naprosyn] 500 mg PO BID PRN #14 tablet. 09/10/20 Unknown Rx methOCARBAMOL [Robaxin TAB] 500 mg PO BID PRN #14 tab 09/10/20 Unknown Rx Ciprofloxacin 0.2%(Nf) 1 each OT BID #1 droperette 06/13/21 Unknown Rx [Ciprofloxacin OTIC] Suture Removal Exam - Exam General: Vital signs noted. No distress. Alert and acting appropriately. Wound: No Pathologic Erythema, No Tenderness, No Drainage, No Pus, No Wound Dehiscence Other Systems: All other systems reviewed and are unremarkable. ED Recheck MDM - Medical Decision Making Patient is a 40-year-old female presents emergency room for suture removal. She has sutures present to the left forehead that she had placed in the emergency department on 06/13/2021. She denies any drainage, fever, chills, vomiting, any complications or increased pain. On exam she has sutures in place without any signs of infection or wound dehiscence. All sutures are removed without any complications, no bleeding, no drainage, no wound dehiscence. Advised patient Follow-up with a primary care doctor. Return to emergency room for any new or symptoms. Critical care attestation.: If time is entered above; I have spent that time in minutes in the direct care of this critically ill patient, excluding procedure time. ED Disposition Clinical Impression: Encounter for removal of sutures Disposition: 01 HOME / SELF CARE / HOMELESS Is pt being admited?: No Does the pt Need Aspirin: No Condition: Stable Instructions: Wound Closure Removal, Care After Additional Instructions: Follow-up with a primary care doctor. Return to emergency room for any new or symptoms. Referrals: LUCIO HURD MD [Staff Physician] - 2-[address] [facility] [Provider Group] - 2-3 Days Time of Disposition: 12:26 Print Language: MONEGAS[place]
[2021-06-25 17:26] VITALS: BP 171/106
== END 2021-06-25 13:17 | disposition home or self-care (01) ==
LOC: ED 11:09
DX: S01.81XD Laceration without foreign body of other part of head, subsequent encounter (principal); X58.XXXD Exposure to other specified factors, subsequent encounter; Z98.890 Other specified postprocedural states
CPT/HCPCS: 99281

== ENCOUNTER 2022-01-20 15:37 | Emergency (ER) | payer MEDICAID, OTHER ==
[2022-01-20 17:30] VITALS: BP 162/96
[2022-01-20] MEDS ORDERED: PENICILLIN G BENZATHINE 1.2 MILLION UNIT/2 ML INJ IM ONE (17:42)
[2022-01-20] MEDS ORDERED: KETOROLAC 10 MG TAB PO ONE (17:42)
[2022-01-20] MEDS ORDERED: DEXAMETHASONE 4 MG TAB PO ONE (17:42)
--- NOTE | 2022-01-20 17:47 | Emergency Department Report ---
ED ENT HPI - General Chief complaint: Fever Stated complaint: THROAT HURT Time Seen by Provider: 01/20/22 17:31 Source: patient Mode of arrival: Ambulatory Limitations: No Limitations - History of Present Illness Initial comments: 41-year-old black female with no past medical history presents to the emergency department for evaluation of sore throat. She states that yesterday she started to develop fever, sore throat, body aches, and decreased appetite. She states that she used ibuprofen for pain and fever but they both returned. She states that she has a history of strep throat and this feels just like strep throat she usually gets. MD complaint: sore throat -: Gradual, days(s) Location: throat (1) Severity: severe Severity scale (0 -10): 10 Quality: aching Consistency: constant Worsens with: swallowing Associated Symptoms: fever, pain with swallowing, sore throat. denies: cough, gum swelling, toothache, tinnitus, hearing loss, discharge from ear, rhinorrhea - Related Data Previous Rx's Medication Instructions Recorded Last Taken Type Nystas/Diphen/Xyl Visc/Mylanta 30 ml MM Q4H PRN #240 ml 01/20/22 Unknown Rx [Magic Mouthwash] Allergies Allergy/AdvReac Type Severity Reaction Status Date / Time No Known Allergies Allergy Verified 05/19/20 12:45 ED Dental HPI - General Chief complaint: Fever Stated complaint: THROAT HURT Time Seen by Provider: 01/20/22 17:31 Source: patient Mode of arrival: Ambulatory Limitations: No Limitations - Related Data Previous Rx's Medication Instructions Recorded Last Taken Type Nystas/Diphen/Xyl Visc/Mylanta 30 ml MM Q4H PRN #240 ml 01/20/22 Unknown Rx [Magic Mouthwash] Allergies Allergy/AdvReac Type Severity Reaction Status Date / Time No Known Allergies Allergy Verified 05/19/20 12:45 ED Review of Systems ROS: Stated complaint: THROAT HURT Other details as noted in HPI Constitutional: fever, malaise. denies: chills, diaphoresis, weakness Eyes: denies: eye pain, eye discharge, vision change ENT: throat pain. denies: ear pain, dental pain, hearing loss, epistaxis, lizzy estion Respiratory: denies: cough, shortness of breath, SOB with exertion, SOB at rest Cardiovascular: denies: chest pain, palpitations, dyspnea on exertion Gastrointestinal: abdominal pain. denies: nausea, vomiting, diarrhea, constipation, hematemesis, melena, hematochezia Genitourinary: denies: urgency, dysuria Musculoskeletal: denies: back pain Skin: denies: rash, lesions Neurological: headache. denies: weakness, numbness, paresthesias, confusion, abnormal gait, vertigo ED Past Medical Hx - Past Medical History Hx Hypertension: No Hx Congestive Heart Failure: No Hx Diabetes: No Hx Deep Vein Thrombosis: Yes (2001 WITH PREG-NO LONGER ON BLOOD THINNERS) Hx Renal Disease: No Hx Sickle Cell Disease: No ([facility] TRA[facility] ONLY) Hx Seizures: No Hx Asthma: No - Surgical History Additional Surgical History: c sect, ectopic preg. cyst removal, hernia - Social History Smoking Status: Never Smoker Substance Use Type: None - Medications Home Medications: Home Medications Medication Instructions Recorded Confirmed Last Taken Type Nystas/Diphen/Xyl Visc/Mylanta 30 ml MM Q4H PRN #240 ml 01/20/22 Unknown Rx [Magic Mouthwash] ED Physical Exam - General Limitations: No Limitations General appearance: alert, in no apparent distress - Head Head exam: Present: atraumatic, normocephalic - Eye Eye exam: Present: normal appearance. Absent: conjunctival injection - ENT ENT exam: Absent: normal orophraynx (Erythema and exudates to posterior oropharynx) - Expanded ENT Exam Expanded Mouth exam: Present: normal external inspection Throat exam: Positive: tonsillar erythema, tonsillomegaly, tonsillar exudate. Negative: R peritonsillar mass, L peritonsillar mass - Neck Neck exam: Present: lymphadenopathy (Anterior cervical), thyromegaly (States that she has known history of goiter) - Respiratory Respiratory exam: Present: normal lung sounds bilaterally. Absent: respiratory distress, wheezes, rales, rhonchi, stridor, chest wall tenderness - Cardiovascular Cardiovascular Exam: Present: tachycardia, normal heart sounds - GI/Abdominal GI/Abdominal exam: Present: soft, normal bowel sounds. Absent: distended, tenderness, guarding, rebound, rigid - Extremities Exam Extremities exam: Present: normal inspection - Back Exam Back exam: Present: normal inspection. Absent: CVA tenderness (R), CVA ten derness (L) - Neurological Exam Neurological exam: Present: alert, oriented X3, normal gait - Psychiatric Psychiatric exam: Present: normal affect, normal mood - Skin Skin exam: Present: warm, dry, intact, normal color ED Course Vital Signs 01/20/22 17:24 Temperature 103.0 F H Pulse Rate 120 H Respiratory 18 Rate Blood Pressure 162/96 Blood Pressure 162/96 [Right] O2 Sat by Pulse 97 Oximetry ED Medical Decision Making - Medical Decision Making 41-year-old black female with no past medical history presents to the emergency department for evaluation of sore throat. She states that yesterday she started to develop fever, sore throat, body aches, and decreased appetite. She states that she used ibuprofen for pain and fever but they both returned. She states that she has a history of strep throat and this feels just like strep throat she usually gets. Centor score equals 4 points (51% to 53% probability of strep pharyngitis), and patient with fever 103 along with history of recurrent strep; therefore patient will be treated with Bicillin LA 1,200,000 units IM x1 along with one-time dose of Toradol and Decadron for pain and swelling to the tonsils. She will be discharged home with prescription for Magic mouthwash to use as needed for sore throat and advised to follow-up with otolaryngology for further evaluation and management. She is advised to return to the emergency department for any concerning symptoms. She verbalized understanding of and agreement with plan of care. Critical care attestation.: If time is entered above; I have spent that time in minutes in the direct care of this critically ill patient, excluding procedure time. ED Disposition Clinical Impression: Exudative pharyngitis Disposition: HOME / SELF CARE / HOMELESS Is pt being admited?: No Does the pt Need Aspirin: No Condition: Stable Instructions: Strep Throat, Adult, [id number] Additional Instructions: Take medication as prescribed. Follow-up with otolaryngology (ear nose and throat doctor) for further evaluation and management. Return to the emergency department as needed. Prescriptions: Nystas/Diphen/Xyl Visc/Mylanta [Magic Mouthwash] 30 ml MM Q4H PRN #240 ml PRN Reason: Sore Throat Referrals: STEPH FOLEY MD [Staff Physician] - 3-5 Days Forms: Work/School Release Form(ED) Time of Disposition: 17:54
== END 2022-01-20 18:53 | disposition home or self-care (01) ==
LOC: ED 15:37
DX: J02.9 Acute pharyngitis, unspecified (principal)
CPT/HCPCS: 96372; 99282; J0561; J8540